=== PATIENT | male | born 1975 | race Hispanic/Latino ===

== ENCOUNTER 2018-04-19 16:16 | Inpatient (IN) | payer SELFPAY ==
[~2018-04-19] VITALS: Ht 172.7 cm; Wt 64.9 kg
[2018-04-19 19:01] LABS: BASOPHILS % (AUTO) 0.6 % (0.0-5.0); HEMATOCRIT 39.3 % (42-54); LYMPHOCYTES % (AUTO) 15.8 % (21.0-51.0); MEAN CORPUSCULAR HEMOGLOBIN 28.6 pg (27.0-33.0); MEAN CORPUSCULAR HGB CONC 33.5 g/dL (32.0-36.0); MEAN CORPUSCULAR VOLUME 85.5 fL (79-99); NEUTROPHILS % (AUTO) 74.6 % (40.0-77.0); PLATELET COUNT (AUTO) 373 K/uL (130-400); RED CELL DISTRIBUTION WIDTH 13.4 % (11.0-15.5); WHITE BLOOD COUNT (AUTO) 9.2 K/uL (4.8-10.8)
[2018-04-19] MEDS ORDERED: SODIUM CHLORIDE 0.9% 1000ML 1,000 ML IV ONE (19:02)
[2018-04-19] MEDS ORDERED: CEFTRIAXONE SODIUM 1 GM ONE (19:02)
[2018-04-19 19:22] LABS: CREATININE 1.1 mg/dL (0.5-1.5)
[2018-04-19 19:27] LABS: ALBUMIN 3.3 g/dL (3.5-5.0); BILIRUBIN,TOTAL 0.3 mg/dL (0.2-1.0); TOTAL PROTEIN, SERUM 8.1 g/dL (6.0-8.3)
[2018-04-19] MEDS ORDERED: IOHEXOL-350 75 ML VIAL IV ONE (19:56)
[2018-04-19] MEDS ORDERED: SODIUM CHLORIDE 0.9% 1000ML 1,000 ML IV SCH (21:49)
[2018-04-19] MEDS ORDERED: ACETAMINOPHEN 325 MG TAB PO PRN ×2 (22:00)
[2018-04-19] MEDS ORDERED: ALBUTEROL SULFATE 0.083% 2.5 MG/3 ML INH IH PRN (22:00)
[2018-04-19] MEDS ORDERED: PROMETHAZINE/CODEINE 6.25-10MG/5ML CUP PO PRN (22:00)
[2018-04-19 23:10] VITALS: BP 134/72
[2018-04-19] MEDS: AZITHROMYCIN 500MG+NS 250ML 250 ML IV SCH (23:46)
[2018-04-20 03:00] VITALS: BP 115/64
[2018-04-20 07:00] VITALS: BP 111/62
[2018-04-20] MEDS: FAMOTIDINE 20MG TAB 20 MG TAB PO SCH ×2 (08:57→20:42)
[2018-04-20] MEDS ORDERED: DIATR MEGLU/DIATRIZOATE SODIUM 30 ML BOTTLE ONE (10:54)
[2018-04-20 11:00] VITALS: BP 95/55
[2018-04-20] MEDS ORDERED: IOHEXOL-350 75 ML VIAL IV ONE (13:28)
[2018-04-20] MEDS: GUAIFENESIN-DM 200/20 MG 10 ML PO SCH ×2 (15:27→20:42)
[2018-04-20 16:00] VITALS: BP 117/70
[2018-04-20 16:38] LABS: BASOPHILS % (AUTO) 0.7 % (0.0-5.0); EOSINOPHILS % (AUTO) 1.2 % (0.0-8.0); HEMATOCRIT 35.7 % (42-54); LYMPHOCYTES % (AUTO) 13.7 % (21.0-51.0); MEAN CORPUSCULAR HEMOGLOBIN 28.1 pg (27.0-33.0); MONOCYTES % (AUTO) 7.2 % (3.0-13.0); NEUTROPHILS % (AUTO) 77.2 % (40.0-77.0); PLATELET COUNT (AUTO) 310 K/uL (130-400); RED CELL DISTRIBUTION WIDTH 13.3 % (11.0-15.5); WHITE BLOOD COUNT (AUTO) 7.8 K/uL (4.8-10.8)
[2018-04-20] MEDS: IPRATROPIUM/ALBUTEROL SULFATE 3 ML SOLUTION IH SCH ×2 (18:15→23:12)
[2018-04-20 19:00] VITALS: BP 124/70
[2018-04-20] MEDS: AZITHROMYCIN 500MG+NS 250ML 250 ML IV SCH (20:42)
[2018-04-21] VITALS: BP 115/64
[2018-04-21] MEDS: GUAIFENESIN-DM 200/20 MG 10 ML PO SCH ×4 (03:06→21:36)
[2018-04-21 04:00] VITALS: BP 110/65
[2018-04-21] MEDS: IPRATROPIUM/ALBUTEROL SULFATE 3 ML SOLUTION IH SCH ×4 (05:04→23:46)
[2018-04-21 05:53] LABS: HEMATOCRIT 36.1 % (42-54); MEAN CORPUSCULAR HEMOGLOBIN 28.9 pg (27.0-33.0); MEAN CORPUSCULAR HGB CONC 33.8 g/dL (32.0-36.0); MEAN CORPUSCULAR VOLUME 85.3 fL (79-99); NUCLEATED RED BLOOD CELLS 0.1 % (0.0-0.19); PLATELET COUNT (AUTO) 352 K/uL (130-400); RED BLOOD CELL COUNT(AUTO) 4.23 MIL/uL (4.50-6.20); RED CELL DISTRIBUTION WIDTH 13.3 % (11.0-15.5); WHITE BLOOD COUNT (AUTO) 8.2 K/uL (4.8-10.8)
[2018-04-21 06:01] LABS: CREATININE 0.8 mg/dL (0.5-1.5); POTASSIUM 3.8 mmol/L (3.5-5.1)
[2018-04-21 07:00] VITALS: BP 116/68
[2018-04-21] MEDS: ENOXAPARIN SODIUM 30 MG/0.3 ML SQ SCH (08:46)
[2018-04-21] MEDS: FAMOTIDINE 20MG TAB 20 MG TAB PO SCH ×2 (08:46→21:36)
[2018-04-21 11:00] VITALS: BP 117/46
[2018-04-21 20:00] VITALS: BP 127/71
[2018-04-21] MEDS: CEFTRIAXONE SODIUM 2 GM VIAL IVP SCH (21:44)
[2018-04-22] VITALS (20 sets, daily range): BP systolic 86–132; BP diastolic 35–86
[2018-04-22] MEDS: GUAIFENESIN-DM 200/20 MG 10 ML PO SCH ×2 (02:30→21:05)
[2018-04-22] MEDS: IPRATROPIUM/ALBUTEROL SULFATE 3 ML SOLUTION IH SCH ×4 (06:12→23:46)
[2018-04-22 06:17] LABS: HEMATOCRIT 37.5 % (42-54); MEAN CORPUSCULAR HEMOGLOBIN 27.6 pg (27.0-33.0); MEAN CORPUSCULAR HGB CONC 32.6 g/dL (32.0-36.0); MEAN CORPUSCULAR VOLUME 84.8 fL (79-99); PLATELET COUNT (AUTO) 321 K/uL (130-400); RED BLOOD CELL COUNT(AUTO) 4.43 MIL/uL (4.50-6.20); RED CELL DISTRIBUTION WIDTH 13.3 % (11.0-15.5)
[2018-04-22 06:24] LABS: CREATININE 0.9 mg/dL (0.5-1.5); POTASSIUM 3.7 mmol/L (3.5-5.1)
[2018-04-22 06:27] LABS: INR 1.02 (0.85-1.15); PARTIAL THROMBOPLASTIN TIME 32.8 SEC (26.3-35.5); PROTHROMBIN TIME 10.7 SEC (9.6-11.6)
[2018-04-22] MEDS: ENOXAPARIN SODIUM 30 MG/0.3 ML SQ SCH (09:00)
[2018-04-22] MEDS: CEFTRIAXONE SODIUM 1 GM IVP SCH (14:28)
[2018-04-22] MEDS ORDERED: PROPOFOL 10 MG/ML 20ML VIAL IV ONE ×2 (15:36→15:58)
[2018-04-22] MEDS ORDERED: LIDOCAINE HCL 1% 20 ML VIAL ONE (15:53)
[2018-04-22] MEDS: FAMOTIDINE 20MG TAB 20 MG TAB PO SCH (21:05)
[2018-04-22] MEDS: CEFTRIAXONE SODIUM 2 GM VIAL IVP SCH (22:00)
[2018-04-23] MEDS: GUAIFENESIN-DM 200/20 MG 10 ML PO SCH ×2 (02:12→08:30)
[2018-04-23 03:53] VITALS: BP 113/64
[2018-04-23 04:38] LABS: HEMATOCRIT 34.7 % (42-54); MEAN CORPUSCULAR HEMOGLOBIN 28.6 pg (27.0-33.0); MEAN CORPUSCULAR HGB CONC 33.5 g/dL (32.0-36.0); MEAN CORPUSCULAR VOLUME 85.2 fL (79-99); PLATELET COUNT (AUTO) 343 K/uL (130-400); RED BLOOD CELL COUNT(AUTO) 4.07 MIL/uL (4.50-6.20); RED CELL DISTRIBUTION WIDTH 13.2 % (11.0-15.5); WHITE BLOOD COUNT (AUTO) 6.8 K/uL (4.8-10.8)
[2018-04-23 04:46] LABS: CREATININE 0.9 mg/dL (0.5-1.5); POTASSIUM 4.1 mmol/L (3.5-5.1)
[2018-04-23] MEDS: IPRATROPIUM/ALBUTEROL SULFATE 3 ML SOLUTION IH SCH ×2 (06:39→11:09)
[2018-04-23 08:00] VITALS: BP 125/76
[2018-04-23] MEDS: ENOXAPARIN SODIUM 30 MG/0.3 ML SQ SCH (09:00)
[2018-04-23] MEDS: FAMOTIDINE 20MG TAB 20 MG TAB PO SCH (11:19)
[2018-04-23] MEDS: CEFTRIAXONE SODIUM 1 GM IVP SCH (11:19)
== END 2018-04-23 13:10 | disposition home or self-care (01) | DRG 186 ==
LOC: EDH 16:16 → OBSVTOIN 16:17 → EDHIP 16:17 → 3AH 22:16
PROVIDERS: ADMIT Hospitalist; ATTEND Hospitalist
PROC: 0B968ZX Drainage of Right Lower Lobe Bronchus, Via Natural or Artificial Opening Endoscopic, Diagnostic (ICD-10-PCS; principal; 2018-04-22)
PROC: 0B9F8ZX Drainage of Right Lower Lung Lobe, Via Natural or Artificial Opening Endoscopic, Diagnostic (ICD-10-PCS; 2018-04-22)
DX: J90 Pleural effusion, not elsewhere classified (principal); J18.1 Lobar pneumonia, unspecified organism; E44.0 Moderate protein-calorie malnutrition; J45.909 Unspecified asthma, uncomplicated; R91.8 Other nonspecific abnormal finding of lung field; E66.01 Morbid (severe) obesity due to excess calories; Z68.21 Body mass index [BMI] 21.0-21.9, adult; Z80.3 Family history of malignant neoplasm of breast; Z80.42 Family history of malignant neoplasm of prostate
CPT/HCPCS: 36415; 71045; 71046; 71260; 74178; 76000; 80048; 80053; 83605; 85025; 85027; 85610; 85730; 87040; 87071; 87101; 87205; 87206; 87804; 88104; 88305; 93005; 94640; 94664; A4218; J0456; J0696; J1650; J2704; J7030; Q9963; Q9967

== ENCOUNTER 2018-05-12 20:59 | Inpatient (IN) | payer OTHER ==
[~2018-05-12] VITALS: Ht 172.7 cm; Wt 63.5 kg
[2018-05-12] MEDS ORDERED: SODIUM CHLORIDE 0.9% 1000ML 1,000 ML IV ONE (21:27)
[2018-05-12] MEDS ORDERED: ONDANSETRON HCL 4 MG/2 ML VIAL ONE (21:27)
[2018-05-12] MEDS ORDERED: MORPHINE SULFATE 4 MG/1ML SYG ONE (21:27)
[2018-05-12 21:44] LABS: BASOPHILS % (AUTO) 0.9 % (0.0-5.0); EOSINOPHILS % (AUTO) 1.7 % (0.0-8.0); HEMATOCRIT 37.3 % (42-54); LYMPHOCYTES % (AUTO) 11.3 % (21.0-51.0); MEAN CORPUSCULAR HEMOGLOBIN 27.4 pg (27.0-33.0); MEAN CORPUSCULAR HGB CONC 32.7 g/dL (32.0-36.0); MEAN CORPUSCULAR VOLUME 83.9 fL (79-99); MONOCYTES % (AUTO) 8.8 % (3.0-13.0); NEUTROPHILS % (AUTO) 77.3 % (40.0-77.0); NUCLEATED RED BLOOD CELLS 0.1 % (0.0-0.19); PLATELET COUNT (AUTO) 384 K/uL (130-400); RED BLOOD CELL COUNT(AUTO) 4.44 MIL/uL (4.50-6.20); RED CELL DISTRIBUTION WIDTH 13.2 % (11.0-15.5); WHITE BLOOD COUNT (AUTO) 8.5 K/uL (4.8-10.8)
[2018-05-12 21:48] LABS: APPEARANCE,URINE Clear (CLEAR); BILIRUBIN,URINE Negative (NEGATIVE); COLOR,URINE Yellow (YELLOW); GLUCOSE, URINE (UA) Negative (NEGATIVE); KETONES,URINE Negative (NEGATIVE); LEUKOCYTE ESTERASE ,URINE Negative (NEGATIVE); NITRATE,URINE Negative (NEGATIVE); OCCULT BLOOD,URINE Negative (NEGATIVE); PROTEIN,URINE Negative (NEGATIVE)
[2018-05-12 21:56] LABS: AMPHET/METH SCREEN,URINE NEGATIVE (NEGATIVE); BARBITURATE SCREEN, URINE NEGATIVE (NEGATIVE); BENZODIAZEPINES SCREEN,URINE NEGATIVE (NEGATIVE); CANNABINOID SCREEN,URINE NEGATIVE (NEGATIVE); COCAINE SCREEN,URINE NEGATIVE (NEGATIVE); OPIATE SCREEN,URINE POSITIVE (NEGATIVE); PHENCYCLIDINE SCREEN,URINE NEGATIVE (NEGATIVE)
[2018-05-12 22:01] LABS: CREATININE 0.9 mg/dL (0.5-1.5); POTASSIUM 3.7 mmol/L (3.5-5.1)
[2018-05-12 22:06] LABS: BILIRUBIN,TOTAL 0.3 mg/dL (0.2-1.0); TOTAL PROTEIN, SERUM 7.5 g/dL (6.0-8.3)
[2018-05-12] MEDS ORDERED: LEVOFLOXACIN 500 MG/D5W 100 ML 100 ML ONE (23:24)
[2018-05-13] MEDS: SODIUM CHLORIDE 0.9% 1000ML 1,000 ML IV SCH ×4 (00:43→21:25)
[2018-05-13] MEDS ORDERED: ACETAMINOPHEN 325 MG TAB PO PRN (00:45)
[2018-05-13] MEDS ORDERED: ONDANSETRON HCL 4 MG/2 ML VIAL IV PRN (00:45)
[2018-05-13] MEDS: LEVOFLOXACIN 500 MG/D5W 100 ML 100 ML IV SCH (00:45)
[2018-05-13] MEDS ORDERED: MORPHINE SULFATE 2 MG/ML 1ML SYG IV PRN (00:45)
[2018-05-13 02:20] VITALS: BP 122/72
[2018-05-13 05:03] LABS: CRP QUANTITATIVE 57.2 mg/L (0.00-9.0)
[2018-05-13 07:30] VITALS: BP 123/70
[2018-05-13] MEDS: ALBUTEROL SULFATE 0.083% 2.5 MG/3 ML INH IH PRN ×2 (07:30→23:25)
[2018-05-13] MEDS: FAMOTIDINE 20MG TAB 20 MG TAB PO SCH ×2 (09:43→21:21)
[2018-05-13] MEDS: ENOXAPARIN SODIUM 30 MG/0.3 ML SQ SCH (09:43)
[2018-05-13 11:00] VITALS: BP 123/65
[2018-05-13 16:00] VITALS: BP 122/78
[2018-05-13] MEDS ORDERED: IOHEXOL 350 MG/ML 100ML INFUS..BTL IV ONE (17:57)
[2018-05-13 20:00] VITALS: BP 117/73
[2018-05-13 23:50] VITALS: BP 118/78
[2018-05-14] MEDS: LEVOFLOXACIN 500 MG/D5W 100 ML 100 ML IV SCH (00:06)
[2018-05-14 03:50] VITALS: BP 123/70
[2018-05-14 05:15] LABS: BASOPHILS % (AUTO) 1.3 % (0.0-5.0); EOSINOPHILS % (AUTO) 5.2 % (0.0-8.0); HEMATOCRIT 34.8 % (42-54); LYMPHOCYTES % (AUTO) 14.8 % (21.0-51.0); MEAN CORPUSCULAR HEMOGLOBIN 27.8 pg (27.0-33.0); MEAN CORPUSCULAR HGB CONC 32.8 g/dL (32.0-36.0); MEAN CORPUSCULAR VOLUME 84.8 fL (79-99); MONOCYTES % (AUTO) 11.3 % (3.0-13.0); NEUTROPHILS % (AUTO) 67.4 % (40.0-77.0); PLATELET COUNT (AUTO) 327 K/uL (130-400); RED CELL DISTRIBUTION WIDTH 13.4 % (11.0-15.5); WHITE BLOOD COUNT (AUTO) 6.3 K/uL (4.8-10.8)
[2018-05-14 05:21] LABS: CREATININE 0.9 mg/dL (0.5-1.5); POTASSIUM 3.9 mmol/L (3.5-5.1)
[2018-05-14] MEDS: SODIUM CHLORIDE 0.9% 1000ML 1,000 ML IV SCH (06:29)
[2018-05-14] MEDS: ALBUTEROL SULFATE 0.083% 2.5 MG/3 ML INH IH PRN ×3 (07:02→21:19)
[2018-05-14] MEDS ORDERED: IOHEXOL-350 75 ML VIAL IV ONE (07:50)
[2018-05-14 08:00] VITALS: BP 114/66
[2018-05-14] MEDS: ENOXAPARIN SODIUM 30 MG/0.3 ML SQ SCH (09:00)
[2018-05-14] MEDS: FAMOTIDINE 20MG TAB 20 MG TAB PO SCH ×2 (11:20→20:20)
[2018-05-14 12:00] VITALS: BP 110/67
[2018-05-14] MEDS ORDERED: IPRATROPIUM/ALBUTEROL SULFATE 3 ML SOLUTION IH PRN (15:30)
[2018-05-14 16:00] VITALS: BP 110/74
[2018-05-14 19:22] VITALS: BP 144/88
[2018-05-15 00:12] VITALS: BP 125/77
[2018-05-15] MEDS: ALBUTEROL SULFATE 0.083% 2.5 MG/3 ML INH IH PRN (01:17)
[2018-05-15] MEDS: LEVOFLOXACIN 500 MG/D5W 100 ML 100 ML IV SCH (01:41)
[2018-05-15 04:23] LABS: BASOPHILS % (AUTO) 0.6 % (0.0-5.0); EOSINOPHILS % (AUTO) 3.2 % (0.0-8.0); HEMATOCRIT 33.1 % (42-54); LYMPHOCYTES % (AUTO) 16.6 % (21.0-51.0); MEAN CORPUSCULAR HEMOGLOBIN 29.1 pg (27.0-33.0); MEAN CORPUSCULAR HGB CONC 34.5 g/dL (32.0-36.0); MEAN CORPUSCULAR VOLUME 84.4 fL (79-99); MONOCYTES % (AUTO) 10.2 % (3.0-13.0); NEUTROPHILS % (AUTO) 69.4 % (40.0-77.0); PLATELET COUNT (AUTO) 342 K/uL (130-400); RED BLOOD CELL COUNT(AUTO) 3.92 MIL/uL (4.50-6.20); RED CELL DISTRIBUTION WIDTH 13.4 % (11.0-15.5); WHITE BLOOD COUNT (AUTO) 6.9 K/uL (4.8-10.8)
[2018-05-15 04:25] VITALS: BP 113/65
[2018-05-15 04:33] LABS: CREATININE 0.8 mg/dL (0.5-1.5); POTASSIUM 3.4 mmol/L (3.5-5.1)
[2018-05-15] MEDS ORDERED: POTASSIUM CHLORIDE 20 MEQ ERTAB PO SCH (07:30)
[2018-05-15] MEDS ORDERED: IPRA3AMP24 IH (07:31)
[2018-05-15] MEDS ORDERED: LEVO500T2 PO (07:31)
[2018-05-15 08:00] VITALS: BP 106/70
[2018-05-15] MEDS: FAMOTIDINE 20MG TAB 20 MG TAB PO SCH (08:54)
== END 2018-05-15 11:55 | disposition home or self-care (01) | DRG 313 ==
LOC: EDH 20:59 → OBSVTOIN 21:00 → EDHIP 21:00 → 4CH 05-13 01:49
PROVIDERS: ADMIT Internal Medicine; ATTEND Internal Medicine
DX: R07.89 Other chest pain (principal); J90 Pleural effusion, not elsewhere classified; C34.90 Malignant neoplasm of unspecified part of unspecified bronchus or lung; K59.00 Constipation, unspecified; K76.0 Fatty (change of) liver, not elsewhere classified; R91.8 Other nonspecific abnormal finding of lung field; Z91.19 Patient's noncompliance with other medical treatment and regimen; Z80.3 Family history of malignant neoplasm of breast
CPT/HCPCS: 36415; 71045; 71260; 71275; 74176; 74177; 76700; 80048; 80053; 80305; 81003; 83605; 83880; 84484; 85025; 85378; 86140; 87040; 93005; 94640; 94664; G0378; J1650; J1956; J2270; J2405; J7030; Q9967

== ENCOUNTER 2018-08-15 23:58 | Emergency (ER) | payer MEDICAID ==
[~2018-08-15 23:58] MED LIST changes: -IOHEXOL-350 50ML VIAL IV ONE; +SODIUM CHLORIDE 0.9% 1000ML 1,000 ML IV ONE
[2018-08-16 00:42] LABS: BASOPHILS % (AUTO) 0.2 % (0.0-5.0); EOSINOPHILS % (AUTO) 0.3 % (0.0-8.0); HEMATOCRIT 37.7 % (42-54); LYMPHOCYTES % (AUTO) 26.3 % (21.0-51.0); MEAN CORPUSCULAR HEMOGLOBIN 29.6 pg (27.0-33.0); MEAN CORPUSCULAR HGB CONC 33.9 g/dL (32.0-36.0); MEAN CORPUSCULAR VOLUME 87.2 fL (79-99); MONOCYTES % (AUTO) 14.3 % (3.0-13.0); NEUTROPHILS % (AUTO) 58.9 % (40.0-77.0); PLATELET COUNT (AUTO) 220 K/uL (130-400); RED BLOOD CELL COUNT(AUTO) 4.32 MIL/uL (4.50-6.20); RED CELL DISTRIBUTION WIDTH 16.3 % (11.0-15.5); WHITE BLOOD COUNT (AUTO) 4.9 K/uL (4.8-10.8)
[2018-08-16 00:46] LABS: APPEARANCE,URINE Clear (CLEAR); BILIRUBIN,URINE Negative (NEGATIVE); COLOR,URINE Yellow (YELLOW); CREATININE 1.1 mg/dL (0.5-1.5); GLUCOSE, URINE (UA) Negative (NEGATIVE); KETONES,URINE Negative (NEGATIVE); LEUKOCYTE ESTERASE ,URINE Negative (NEGATIVE); NITRATE,URINE Negative (NEGATIVE); OCCULT BLOOD,URINE Negative (NEGATIVE); PH,URINE 6.5 (5.0-8.0); POTASSIUM 3.9 mmol/L (3.5-5.1); PROTEIN,URINE Negative (NEGATIVE)
[2018-08-16 00:48] LABS: ALBUMIN 3.1 g/dL (3.5-5.0); BILIRUBIN,TOTAL 0.1 mg/dL (0.2-1.0); TOTAL PROTEIN, SERUM 6.7 g/dL (6.0-8.3)
[2018-08-16] MEDS ORDERED: ONDANSETRON HCL 4 MG/2 ML VIAL ONE (01:48)
[2018-08-16] MEDS ORDERED: MORPHINE SULFATE 4 MG/1ML SYG ONE (01:49)
[2018-08-16] MEDS ORDERED: IOHEXOL-350 50ML VIAL IV ONE (03:05)
== END 2018-08-16 04:22 | disposition home or self-care (01) ==
LOC: EDH 23:58
DX: J01.10 Acute frontal sinusitis, unspecified (principal); J45.909 Unspecified asthma, uncomplicated
CPT/HCPCS: 36415; 70470; 71260; 80053; 81003; 85025; 96374; 96375; 99284; J2270; J2405; J7030; Q9967 ×2

== ENCOUNTER → 2018-08-15 | Outpatient (CLI) | payer MEDICAID ==
[~2018-08-15] MED LIST: IOHEXOL-350 50ML VIAL IV ONE; IPRA3AMP24 IH; LEVO500T2 PO
== END | disposition home or self-care (01) ==
LOC: RAH 08:37
PROVIDERS: ATTEND Internal Medicine Hematology & Oncology
DX: J90 Pleural effusion, not elsewhere classified (principal); J98.11 Atelectasis; C34.90 Malignant neoplasm of unspecified part of unspecified bronchus or lung
CPT/HCPCS: 71260; Q9967

== ENCOUNTER 2018-08-29 12:44 | Observation (INO) | payer MEDICAID ==
[~2018-08-29] VITALS: Ht 175.3 cm; Wt 64.4 kg
[~2018-08-29 12:44] MED LIST changes: -SODIUM CHLORIDE 0.9% 1000ML 1,000 ML IV ONE
[2018-08-29 13:15] LABS: BASOPHILS % (AUTO) 0.7 % (0.0-5.0); EOSINOPHILS % (AUTO) 0.8 % (0.0-8.0); HEMATOCRIT 38.7 % (42-54); MEAN CORPUSCULAR HEMOGLOBIN 30.5 pg (27.0-33.0); MEAN CORPUSCULAR HGB CONC 34.4 g/dL (32.0-36.0); MEAN CORPUSCULAR VOLUME 88.6 fL (79-99); MONOCYTES % (AUTO) 16.1 % (3.0-13.0); NEUTROPHILS % (AUTO) 54.4 % (40.0-77.0); NUCLEATED RED BLOOD CELLS 0.1 % (0.0-0.19); PLATELET COUNT (AUTO) 416 K/uL (130-400); RED BLOOD CELL COUNT(AUTO) 4.36 MIL/uL (4.50-6.20); RED CELL DISTRIBUTION WIDTH 16.4 % (11.0-15.5); WHITE BLOOD COUNT (AUTO) 3.8 K/uL (4.8-10.8)
[2018-08-29] MEDS ORDERED: IPRATROPIUM/ALBUTEROL SULFATE 3 ML SOLUTION IH ONE (13:20)
[2018-08-29 13:25] LABS: POTASSIUM 3.8 mmol/L (3.5-5.1)
[2018-08-29 13:29] LABS: ALBUMIN 3.3 g/dL (3.5-5.0); BILIRUBIN,DIRECT 0.1 mg/dL (0.0-0.3); BILIRUBIN,TOTAL 0.3 mg/dL (0.2-1.0)
[2018-08-29 13:49] LABS: B-TYPE NATRIURETIC PEPTIDE 19 pg/mL (0-100)
[2018-08-29] MEDS ORDERED: IOHEXOL-350 75 ML VIAL IV ONE (15:00)
[2018-08-29] MEDS ORDERED: METHYLPREDNISOLONE SOD SUCC 125MG/2ML VIAL ONE (16:50)
[2018-08-29] MEDS ORDERED: LEVOFLOXACIN 750 MG/D5W 150 ML 150 ML ONE (17:22)
[2018-08-29] MEDS ORDERED: CEFEPIME HCL 1 GM VIAL ONE (17:22)
[2018-08-29] MEDS: SODIUM CHLORIDE 0.9% 1000ML 1,000 ML IV SCH (17:30)
[2018-08-29] MEDS ORDERED: VANCOMYCIN PROTOCOL PER PHARMACY IV SCH (18:00)
[2018-08-29 18:25] VITALS: BP_SYST 120; BP_DIAS 65; BP_DIAS 69
[2018-08-29] MEDS: IPRATROPIUM/ALBUTEROL SULFATE 3 ML SOLUTION IH SCH ×2 (18:49→22:33)
[2018-08-29] MEDS: VANCOMYCIN 1GM+NS 250ML 250 ML IV SCH (20:37)
[2018-08-30] VITALS: BP 113/65
[2018-08-30] MEDS: CEFEPIME HCL 1 GM VIAL IVP SCH ×2 (01:10→09:18)
[2018-08-30] MEDS: METHYLPREDNISOLONE SOD SUCC 125MG/2ML VIAL IVP SCH ×2 (01:10→04:03)
[2018-08-30] MEDS: IPRATROPIUM/ALBUTEROL SULFATE 3 ML SOLUTION IH SCH ×4 (01:58→13:47)
[2018-08-30] MEDS: SODIUM CHLORIDE 0.9% 1000ML 1,000 ML IV SCH ×2 (03:09→04:04)
[2018-08-30 04:00] VITALS: BP 114/72
[2018-08-30 07:00] VITALS: BP 132/66
[2018-08-30] MEDS: VANCOMYCIN 1GM+NS 250ML 250 ML IV SCH (09:19)
[2018-08-30 11:00] VITALS: BP 108/59
[2018-08-30] MEDS ORDERED: LEVOFLOXACIN 750 MG/D5W 150 ML 150 ML IV SCH (17:00)
== END 2018-08-30 14:10 | disposition home or self-care (01) ==
LOC: EDH 12:44 → EDHIP 12:45 → 3DH 18:20
PROVIDERS: ADMIT Internal Medicine Hematology & Oncology; ATTEND Internal Medicine Hematology & Oncology
DX: J44.1 Chronic obstructive pulmonary disease with (acute) exacerbation (principal); R11.2 Nausea with vomiting, unspecified; R09.02 Hypoxemia; C34.90 Malignant neoplasm of unspecified part of unspecified bronchus or lung; C79.9 Secondary malignant neoplasm of unspecified site; F41.1 Generalized anxiety disorder; Z85.118 Personal history of other malignant neoplasm of bronchus and lung
CPT/HCPCS: 36415; 71045; 71275; 80048; 80076; 82550; 83880; 84484; 85025; 87040; 87077; 87186; 87804 ×2; 93005; 94640 ×7; 94664; 96361 ×2; 96365; 96366 ×2; 96375; 96376; 99284; A4218 ×3; G0378 ×25; J0692 ×3; J1956; J2930 ×3; J3370 ×2; Q9967